=== PATIENT | female | born 1960 | race Caucasian/White ===

== ENCOUNTER 2017-11-22 11:53 | Inpatient (IN) ==
[2017-11-22] MEDS ORDERED: ASPIRIN 325 MG TABLET PO STA (12:19)
[2017-11-22 12:39] LABS: Basophils # 0.1 10*3/uL (0.0-0.2); Basophils % 0.8 % (0.0-0.8); Eosinophils % 0.3 % (0.00-10.9); Hematocrit 43.8 VOL% (35.7-47.0); Hemoglobin 14.7 GM/DL (12.0-16.0); Immature Granulocytes % 0.4 %; Immature Granulocytes Absolute 0.05 #; Lymphocytes # 2.1 10*3/uL (1.4-4.0); Lymphocytes % 18.4 % (21.3-54.2); Mean Corpuscular HGB Conc 33.6 GM/DL (32-36); Mean Corpuscular Hemoglobin 32 PG (27-34); Mean Corpuscular Volume 94.2 FL (87-102); Mean Platelet Volume 9.8 FL (9.6-12.0); Monocytes # 0.9 10*3/uL (0.11-0.8); Monocytes % 8.1 % (1.7-12.7); Neutrophils # 8.4 10*3/uL (1.4-7.4); Platelet Count 278 T/CUMM (130-400); Red Blood Count 4.65 MC/CUMM (3.8-5.5); White Blood Count 11.7 T/CUMM (4-12)
[2017-11-22 12:47] LABS: PT Patient Result 10.3 SECS
[2017-11-22 14:36] LABS: Albumin 4.1 G/DL (3.4-5.0); Bilirubin,Total 0.5 MG/DL (0.2-1.0); Calcium 9.3 MG/DL (8.5-10.1); Potassium 4.2 MMOL/L (3.5-5.1); Total Protein 7.4 G/DL (6.4-8.3)
[2017-11-22] MEDS ORDERED: ALUM/MAG/SIMETH/LIDO VISC 1:1 30 ML BOTTLE PO STA (15:09)
[2017-11-22] MEDS ORDERED: ONDANSETRON 4 MG/2 ML VIAL IV STA (15:09)
[2017-11-22] MEDS ORDERED: NITROGLYCERIN 2% OINT 1 INCH/GM PACK TOP STA (15:10)
[2017-11-22] MEDS ORDERED: LORazepam 2 MG/1 ML VIAL ONE (15:26)
[2017-11-22] MEDS ORDERED: LORazepam 2 MG/1 ML VIAL IV STA (15:39)
[2017-11-22 16:19] LABS: CKMB % 5.2 %
[2017-11-22 16:20] LABS: Troponin I 2.29 NG/ML (0.00-0.045)
[2017-11-22] MEDS ORDERED: MAGNESIUM SULF RIDER 2 GM in PREMIX 1 EACH IV PRN (16:49)
[2017-11-22] MEDS ORDERED: MAGNESIUM SULF RIDER 4 GM in PREMIX 1 EACH IV PRN (16:49)
[2017-11-22] MEDS ORDERED: ONDANSETRON 4 MG/2 ML VIAL IV PRN (16:49)
[2017-11-22] MEDS ORDERED: POTASSIUM CHLORIDE 20 MEQ TABLET PO PRN ×2 (16:49)
[2017-11-22] MEDS ORDERED: ALPRAZolam 0.5 MG TABLET PO PRN (16:55)
[2017-11-22] MEDS ORDERED: NITROGLYCERIN SL 0.4 MG TABLET SL PRN (16:55)
[2017-11-22] MEDS ORDERED: LORazepam 2 MG/1 ML VIAL IV PRN (16:57)
[2017-11-22] MEDS ORDERED: levETIRAcetam 500 MG/5 ML VIAL IV ONE (17:09)
[2017-11-22] MEDS ORDERED: KETOROLAC 30 MG/1 ML VIAL IV ONE (18:18)
[2017-11-22] MEDS: THEOPHYLLINE ER (24 HR) 300 MG CAPSULE PO SCH (18:52)
[2017-11-22] MEDS: ENOXAPARIN 60 MG/0.6 ML SYRINGE SUBCUT SCH (18:52)
[2017-11-22] MEDS: SODIUM CHLORIDE 0.45% 1,000 ML IV SCH (18:54)
[2017-11-22] MEDS: ALBUTEROL/IPRATROPIUM 3 ML NEB RESP TX SCH (19:12)
[2017-11-22] MEDS ORDERED: ZONISAMIDE 50 MG PO SCH (21:00)
[2017-11-22] MEDS: PANTOPRAZOLE 40 MG TABLET PO SCH (21:35)
[2017-11-22] MEDS: RANOLAZINE 500 MG TABLET PO SCH (21:35)
[2017-11-22] MEDS: ATORVASTATIN 40 MG TABLET PO SCH (21:35)
[2017-11-22] MEDS: DONEPEZIL 10 MG TABLET PO SCH (21:35)
[2017-11-22 23:31] LABS: Troponin I 2.34 NG/ML (0.00-0.045)
[2017-11-23] MEDS ORDERED: SODIUM CHLORIDE 0.9% 500 ML IV ONE
[2017-11-23] MEDS ORDERED: SODIUM CHLORIDE 0.9% 1,000 ML IV ONE (00:40)
[2017-11-23] MEDS: NITROGLYCERIN 2% OINT 1 INCH/GM PACK TOP SCH ×2 (00:48→05:43)
[2017-11-23] MEDS: SODIUM CHLORIDE 0.45% 1,000 ML IV SCH ×2 (04:04→15:02)
[2017-11-23 04:37] LABS: Basophils # 0.1 10*3/uL (0.0-0.2); Basophils % 0.9 % (0.0-0.8); Eosinophils % 0.4 % (0.00-10.9); Hematocrit 35.2 VOL% (35.7-47.0); Hemoglobin 11.8 GM/DL (12.0-16.0); Immature Granulocytes % 0.4 %; Immature Granulocytes Absolute 0.04 #; Lymphocytes # 3.6 10*3/uL (1.4-4.0); Mean Corpuscular HGB Conc 33.5 GM/DL (32-36); Mean Corpuscular Hemoglobin 32 PG (27-34); Mean Corpuscular Volume 94.6 FL (87-102); Mean Platelet Volume 10.5 FL (9.6-12.0); Monocytes % 9.5 % (1.7-12.7); Neutrophils # 5.5 10*3/uL (1.4-7.4); Neutrophils % 53.8 % (38.7-73.9); Platelet Count 212 T/CUMM (130-400); Red Blood Count 3.72 MC/CUMM (3.8-5.5); Red Cell Distribution Width 14.3 % (9.3-17.3); White Blood Count 10.3 T/CUMM (4-12)
[2017-11-23 05:05] LABS: Calcium 8.1 MG/DL (8.5-10.1); Osmolality,Calculated 283.1 MOS/KG (273-304); Potassium 3.8 MMOL/L (3.5-5.1)
[2017-11-23 05:15] LABS: Osmolality,Calculated 283.1 MOS/KG (273-304); Potassium 3.7 MMOL/L (3.5-5.1); Risk Ratio 2.72; Thyroid Stimulating Hormone 0.688 uIU/ml (0.358-3.74); VLDL CHOLESTEROL 22.2 MG/DL
[2017-11-23] MEDS: ENOXAPARIN 60 MG/0.6 ML SYRINGE SUBCUT SCH (05:55)
[2017-11-23] MEDS ORDERED: HEPARIN/NACL 0.9% 2 UNITS/ML 1,000 ML IV ONE (07:31)
[2017-11-23] MEDS ORDERED: LIDOCAINE 1% 20 ML VIAL ONE (07:31)
[2017-11-23] MEDS: ALBUTEROL/IPRATROPIUM 3 ML NEB RESP TX SCH ×4 (07:50→20:10)
[2017-11-23] MEDS ORDERED: DIAZEPAM 5 MG TABLET PO ONE (07:50)
[2017-11-23] MEDS ORDERED: diphenhydrAMINE CAP 25 MG CAPSULE PO ONE (07:50)
[2017-11-23] MEDS: THEOPHYLLINE ER (24 HR) 300 MG CAPSULE PO SCH ×2 (08:05→16:34)
[2017-11-23] MEDS: ASPIRIN EC 81 MG TABLET PO SCH (08:05)
[2017-11-23] MEDS: levETIRAcetam 500 MG TABLET PO SCH ×2 (08:05→21:47)
[2017-11-23] MEDS: CLOPIDOGREL 75 MG TABLET PO SCH (08:06)
[2017-11-23] MEDS: OXYBUTYNIN XL 5 MG TABLET PO SCH (08:06)
[2017-11-23] MEDS: RANOLAZINE 500 MG TABLET PO SCH ×2 (08:06→21:47)
[2017-11-23] MEDS: PANTOPRAZOLE 40 MG TABLET PO SCH ×2 (08:06→21:47)
[2017-11-23] MEDS ORDERED: MIDAZOLAM 2 MG/2 ML VIAL ONE (09:07)
[2017-11-23] MEDS ORDERED: fentaNYL 100 MCG/2 ML VIAL ONE (09:07)
[2017-11-23] MEDS ORDERED: BIVALIRUDIN 250 MG VIAL IV ONE (09:07)
[2017-11-23] MEDS ORDERED: ACETAMINOPHEN 325 MG TABLET ONE ×2 (10:06→14:36)
[2017-11-23] MEDS: ACETAMINOPHEN 325 MG TABLET PO PRN ×2 (11:45→14:39)
[2017-11-23] MEDS: NICOTINE 14 MG/24 HR PATCH TRANSDERM SCH (18:46)
[2017-11-23] MEDS: DONEPEZIL 10 MG TABLET PO SCH (21:47)
[2017-11-23] MEDS: ATORVASTATIN 40 MG TABLET PO SCH (21:47)
[2017-11-23 23:20] LABS: Barbiturates Screen,Urine Negative (Negative); Benzodiazepines Screen,Urine Positive (Negative); Cannabinoid Screen,Urine Positive (Negative); Opiate Screen,Urine Negative (Negative); Phencyclidine Screen,Urine Negative (Negative)
[2017-11-24] MEDS: SODIUM CHLORIDE 0.45% 1,000 ML IV SCH ×2 (00:31→09:07)
[2017-11-24 03:59] LABS: Basophils # 0.1 10*3/uL (0.0-0.2); Basophils % 0.8 % (0.0-0.8); Eosinophils # 0.1 10*3/uL (0.0-0.87); Eosinophils % 0.7 % (0.00-10.9); Hematocrit 32.8 VOL% (35.7-47.0); Hemoglobin 11.1 GM/DL (12.0-16.0); Immature Granulocytes % 0.4 %; Immature Granulocytes Absolute 0.04 #; Lymphocytes % 20.6 % (21.3-54.2); Mean Corpuscular HGB Conc 33.8 GM/DL (32-36); Mean Corpuscular Hemoglobin 32 PG (27-34); Mean Corpuscular Volume 94.5 FL (87-102); Mean Platelet Volume 10.4 FL (9.6-12.0); Monocytes # 0.9 10*3/uL (0.11-0.8); Monocytes % 9.5 % (1.7-12.7); Neutrophils # 6.7 10*3/uL (1.4-7.4); Platelet Count 182 T/CUMM (130-400); Red Blood Count 3.47 MC/CUMM (3.8-5.5); Red Cell Distribution Width 14.1 % (9.3-17.3); White Blood Count 9.9 T/CUMM (4-12)
[2017-11-24 04:13] LABS: Calcium 7.7 MG/DL (8.5-10.1); Osmolality,Calculated 280.3 MOS/KG (273-304); Potassium 3.6 MMOL/L (3.5-5.1)
[2017-11-24] MEDS: RANOLAZINE 500 MG TABLET PO SCH ×2 (09:05→22:08)
[2017-11-24] MEDS: OXYBUTYNIN XL 5 MG TABLET PO SCH (09:05)
[2017-11-24] MEDS: levETIRAcetam 500 MG TABLET PO SCH ×2 (09:05→22:09)
[2017-11-24] MEDS: ASPIRIN EC 81 MG TABLET PO SCH (09:06)
[2017-11-24] MEDS: CLOPIDOGREL 75 MG TABLET PO SCH (09:06)
[2017-11-24] MEDS: THEOPHYLLINE ER (24 HR) 300 MG CAPSULE PO SCH ×2 (09:06→16:32)
[2017-11-24] MEDS: PANTOPRAZOLE 40 MG TABLET PO SCH ×2 (09:06→22:09)
[2017-11-24] MEDS: ALBUTEROL/IPRATROPIUM 3 ML NEB RESP TX SCH ×4 (11:42→20:37)
[2017-11-24] MEDS: NICOTINE 14 MG/24 HR PATCH TRANSDERM SCH (16:32)
[2017-11-24] MEDS: ATORVASTATIN 40 MG TABLET PO SCH (22:08)
[2017-11-24] MEDS: DONEPEZIL 10 MG TABLET PO SCH (22:08)
[2017-11-25] MEDS: SODIUM CHLORIDE 0.45% 1,000 ML IV SCH ×2 (01:38→09:35)
[2017-11-25] MEDS: ALBUTEROL/IPRATROPIUM 3 ML NEB RESP TX SCH ×3 (07:34→14:13)
[2017-11-25 08:11] VITALS: BP 100/67
[2017-11-25] MEDS: CLOPIDOGREL 75 MG TABLET PO SCH (09:33)
[2017-11-25] MEDS: RANOLAZINE 500 MG TABLET PO SCH (09:33)
[2017-11-25] MEDS: PANTOPRAZOLE 40 MG TABLET PO SCH (09:33)
[2017-11-25] MEDS: levETIRAcetam 500 MG TABLET PO SCH (09:33)
[2017-11-25] MEDS: OXYBUTYNIN XL 5 MG TABLET PO SCH (09:33)
[2017-11-25] MEDS: ASPIRIN EC 81 MG TABLET PO SCH (09:33)
[2017-11-25] MEDS: THEOPHYLLINE ER (24 HR) 300 MG CAPSULE PO SCH (09:33)
[2017-11-25] MEDS ORDERED: NITROGLYCERIN SL 0.4 MG TABLET SL PRN (10:47)
[2017-11-25] MEDS: NICOTINE 14 MG/24 HR PATCH TRANSDERM SCH (12:45)
== END 2017-11-25 16:00 | disposition home or self-care (01) | DRG 281 ==
LOC: N.ED 11:53 → N.EDINP 16:49 → N.TELES 17:33
PROVIDERS: ADMIT Internal Medicine; ATTEND Internal Medicine
PROC: CLCCHCL (ICD-10-PCS; 2017-11-23 09:15)